=== PATIENT | female | born 1940 | race African-American/Black ===

== ENCOUNTER → 2020-07-22 | Outpatient (CLI) | payer MEDICARE, MEDICAID ==
[~2020-07-22] MED LIST: 8 HOUR650 MG; GABAPENTIN600 M1 PO; GLYBURIDE 5 MG T5 M1 PO; LISINOPRIL5 MG PO; LOVASTATIN 20 M20 MG PO; METFORMIN HCL500 M3; PREVNAR 13 SYR0.5 ML; TRAMADOL 50 MG50 MG PO
== END ==
LOC: M.PC 09:40
PROVIDERS: ATTEND Physical Medicine & Rehabilitation
DX: M51.16 Intervertebral disc disorders with radiculopathy, lumbar region (principal); M48.061 Spinal stenosis, lumbar region without neurogenic claudication; M79.604 Pain in right leg; Z87.39 Personal history of other diseases of the musculoskeletal system and connective tissue